=== PATIENT | male | born 1955 | race Caucasian/White ===

== ENCOUNTER 2017-05-17 01:04 | Emergency (ER) | payer MEDICAID, OTHER ==
[~2017-05-17] VITALS: Ht 182.9 cm; Wt 85.0 kg
[2017-05-17 01:07] VITALS: Ht 182.9 cm; Wt 85.0 kg
[2017-05-17] MEDS ORDERED: IBUPROFEN 200 MG TAB PO ONE (02:00)
--- NOTE | 2017-05-17 02:20 | ERA ---
ER Documentation Chief Complaint Date/Time DATE: 05/17/17 TIME: 02:16 Chief Complaint low back pain radaiting to right leg HPI This is an otherwise healthy 61-year-old male returning to the ED 1 day after diagnosis with back pain of unknown origin. Patient states that the pain is not radiating down the right leg and stops at the knee on the lateral aspect. Patient denies pain lasting more than 6 weeks; Denies saddle parasthesia, incontinence, RPND, or pain exacerbated by valsalva; Denies fever, chills, night sweats, weight loss, or increase symptoms at night. Patient also denies h/ o cardiovascular dz, sciatica, disk herniation, spinal stenosis, fibromyalgia, cancer, HIV, IVDU, arthritis or recent surgery. ROS All systems reviewed and are negative except as per history of present illness. Medications Home Meds No Active Prescriptions or Reported Meds Allergies Allergies: Coded Allergies: No Known Allergy (Unverified , 04/11/12) PMhx/Soc Medical and Surgical Hx: pt denies Medical Hx, pt denies Surgical Hx Hx Miscellaneous Medical Probl: No (NO MEDICAL OR SURGICAL HISTORY PER PATIENT) Hx Alcohol Use: No Hx Substance Use: No Hx Tobacco Use: No Smoking Status: Never smoker Physical Exam Vitals Vital Signs Date Time Temp Pulse Resp B/P Pulse Ox O2 Delivery O2 Flow Rate FiO2 05/17/17 01:07 98.3 79 20 162/90 98 Physical Exam Const: Healthy-appearing. Well-nourished. Well-developed. No acute distress. Head: Normocephalic, Atraumatic. Eyes: Non-injected; No scleral erythema, discharge or foreign body. EOMI and KERWIN bilaterally. Ears: Normal External Ears, EACs clear, TM normal bilaterally without erythema. Nose: Normal nose without discharge, septal deviation, or sinus tenderness. Oral: No oral edema visualized. Mucous membranes moist and pink. Neck: No cervical lymphadenopathy, masses or goiter palpated. Full range of motion. Supple. Trachea midline. ~ No meningismus. Pulm: Good air movement in upper and lower respiratory tracts. No dyspnea, stridor, tripoding or drooling. Clear to auscultation bilaterally. Cardio: Regular rate and rhythm; No murmurs, gallops or rubs auscultated. No JVD grossly observed. Radial and posterior tibial pulses 2+ bilaterally. No cyanosis. Capillary refill less than 2 seconds. Abd: Soft, non tender, non distended. No guarding, masses. Normal bowel sounds. No McBurney's point tenderness. MS: Normal motor strength, normal tone with gross examination. Skin: No petechiae or rashes. No ulcer, induration, jaundice. Good turgor. Back: Negative straight leg raise test. No midline, flank or CVA tenderness. Ext: No cyanosis, or edema. Normal movement of all extremities grossly observed. Neur: Awake, alert and oriented x3. Neurovascularly intact bilaterally. Psych: Normal Mood and Affect. Results 24 hrs Current Medications Medications (Trade) Dose Ordered Sig/Partha Route PRN Reason Start Time Stop Time Status Last Admin Dose Admin Ibuprofen (Motrin) 400 mg ONCE ONCE PO 05/17/17 02:00 05/17/17 02:01 DC 05/17/17 02:03 Procedures/MDM This is a 61-year-old male returning to the ED with a chief complaint of back pain. Patient states that he was diagnosed with acute back pain of unknown origin in this ED 1 day ago. Since he was seen in the ED, sciatic symptoms have developed. Review of the documents revealed that he was not seen in this emergency department. An x-ray was obtained, read by the radiologist and given following impression: PROCEDURE: XR Lumbar Spine. CLINICAL INDICATION: Back pain TECHNIQUE: AP, lateral and cone-down lateral view of the lumbar spine were obtained. COMPARISON: No prior studies are available for comparison. FINDINGS: Facet hypertrophy in lower lumbar spine. Mild degenerative disk changes at L4- 5. There is approximate 2 mm anterior displacement of L4 vertebral body on L5 which appears be secondary to degenerative changes. No fracture seen. Mild degenerative changes at sacroiliac joints. Degenerative changes in visualized lower thoracic spine. RPTAT: AA IMPRESSION: Degenerative changes. Please see above. Patient was given ibuprofen with good symptomatic relief in the ED.. 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 Thus, the treatment plan will include an NSAID for discomfort as well as conservative therapy which has been discussed with the patient. At this time I do not suspect cauda equina syndrome, spinal cord compression, aortic aneurysm , aortic dissection, epidural abscess, spinal hematoma, malignancy, kidney stones or pyelonephritis. I have spoke with the patient regarding their condition and future management. I presented this case to my attending Dr. Drew who agrees with my assessment. They have verbally responded that they understand their status and treatment plan. The patients vitals are stable, and their current condition is appropriate for discharge. The patient will be given discharge instructions with return precautions. Departure Diagnosis: Primary Impression: Back pain Qualified Code: M54.41 - Acute right-sided low back pain with right-sided sciatica Condition: Stable Additional Instructions: Follow up with your PCP within the next 1-3 days for a more thorough evaluation and a possible referral to a specialist. Return the the emergency department immediately if symptoms worsen or change. If you have any questions regarding medications, ask your pharmacist or us before you leave. If any adverse reactions occur while taking your medications, discontinue the treatment and return to the emergency department immediately. Take your medications as directed, and complete the entire course of treatment. OG GARCIA PA-C May 17, 2017 02:20
--- NOTE | 2017-05-17 03:39 | RADRPT ---
PROCEDURE: XR Lumbar Spine. CLINICAL INDICATION: Back pain TECHNIQUE: AP, lateral and cone-down lateral view of the lumbar spine were obtained. COMPARISON: No prior studies are available for comparison. FINDINGS: Facet hypertrophy in lower lumbar spine. Mild degenerative disk changes at L4-5. There is approxim ate 2 mm anterior displacement of L4 vertebral body on L5 which appears be secondary to degenerative changes. No fracture seen. Mild degenerative changes at sacroiliac joints. Degenerative changes in visualized lower thoracic spine. RPTAT: AA IMPRESSION: Degenerative changes. Please see above. .Christian Duvall MD, MD Date Time Electronically viewed and signed by .Christian Duvall MD, MD on 05/17/2017 03:39 .S/
[2017-05-17 03:58] VITALS: BP 140/97; PULSE 85; RESP 17; TEMP 98.3
== END 2017-05-17 04:02 | disposition home or self-care (01) ==
LOC: FTE 01:04
DX: M54.41 Lumbago with sciatica, right side (principal)
CPT/HCPCS: 72100; Z7502; Z7610